=== PATIENT | female | born 1960 | race Caucasian/White ===

== ENCOUNTER → 2017-05-12 | Outpatient (CLI) | payer MEDICARE ==
[~2017-05-12] MED LIST: CARISOPRODOL350 MG PO; IBUPROFEN 400400 M2 PO; LOMOTIL TABLET1 EACH PO; NEURONTIN600 MG PO; PAXIL20 MG PO; TYLENOL325 MG PO; ZANAFLEX4 MG PO
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
== END | disposition home or self-care (01) ==
LOC: M.PC 03-11 04:50
DX: M54.12 Radiculopathy, cervical region (principal); G89.29 Other chronic pain; F43.10 Post-traumatic stress disorder, unspecified; R51 Headache; Z88.0 Allergy status to penicillin; Z98.890 Other specified postprocedural states

== ENCOUNTER → 2017-06-02 | Outpatient (CLI) | payer MEDICARE ==
--- NOTE | 2017-06-07 07:21 | PAINCON ---
[address] [address] PAIN MANAGEMENT CONSULTATION Name: FRANCISCO TAFOYA Room: [facility] Gallardo#: [id number] Admission: 06/02/17 Attend Phys: Chi Katz Discharge: Date of : 62 Report #: [id number] THIS REPORT FOR: //name// CC: Thierno Lozoya The patient is a 56-year-old female, prior seen in consultation on 05/12/2017, diagnosed with symptomatic cervical radiculopathy, given epidural injection at that time. Returns to pain clinic today noting the injection afforded about 70% overall relief with ongoing improvement; however, she still has cervical radicular symptoms. She also notes she has had some chronic myofascial pain with muscle spasm, requiring complex medication management. She has been on Soma 350 mg 4 times a day for going on 10 years. Today, we did have a prolonged discussion about concern for habituation with Soma type products. Metabolite of Soma (meprobamate) is a [employer] anxiolytic. It can be quite habituating. I suggested the patient try and rotate from this agent to another muscle relaxant. To this end, I have taken the liberty of providing patient with a prescription for tizanidine 4 mg, written ostensibly for q.i.d. use. With this, I suggested that patient start by replacing 1 Soma tablet with tizanidine (continue Soma t.i.d. and use tizanidine 4 mg for her a.m. dose for a week; use tizanidine for the a.m. dose, Soma for the afternoon dose, tizanidine for the evening dose and Soma for the bedtime dose for a week; then use tizanidine for the morning, afternoon and evening dose with Soma reserved for the bedtime dose for a week and then try simply discontinuing Soma altogether with tizanidine 4 times a day, gradually weaning down to t.i.d.) I did provide the patient with a prescription for tizanidine as noted above. With ongoing cervical radicular symptoms with improvement from the first injection, but still with positive Lhermitte's sign, we elected to repeat the cervical epidural injection today. Follow up in 4 weeks for reevaluation. ASSESSMENT: Symptomatic cervical radiculopathy. PROCEDURE: Cervical epidural injection under fluoroscopy. PROCEDURE NOTE: After written and informed consent was obtained including risk of dural puncture, spinal cord trauma, paralysis and increased pain, the patient was taken to the fluoroscopy suite and placed in the prone position, with appropriate abdominal bolstering, neck was flexed, palms under the thighs. Skin was prepped with ChloraPrep. Sterile draping was applied. Skin wheal with 1% Xylocaine was raised. A 22-gauge 3-1/2 inch epidural Tuohy needle was placed via a midline approach at the C7-T1 interspace, advanced under biplanar fluoroscopy using continuous loss of resistance. With appropriate loss of resistance at the expected depth on lateral view, the glass loss of resistance syringe was disconnected. A low volume [id number] PAIN MANAGEMENT CONSULTATION Name: FRANCISCO TAFOYA Room: [facility]#: [id number] Admission: 06/02/17 Attend Phys: Chi Katz Discharge: Date of : 62 Report #: [id number] needle and a 5 mL syringe. Negative aspiration for cerebrospinal fluid or blood was noted. A 1 mL of Omnipaque was injected which showed spread within the epidural space on biplanar fluoroscopy. This was followed with 80 mg of triamcinolone plus 1 mL of 1.5% preservative Xylocaine. Needle was withdrawn to the interspinous ligament, 0.5 mL of Xylocaine was used to flush the needle. The needle was then completely withdrawn. The area was cleansed. Band-Aid was applied. The patient was allowed to move off the procedure table and ambulated to the recovery room, monitored for an appropriate period of time, discharged in good and stable condition. <ELECTRONICALLY SIGNED> By: Moiz Lozoya DO 06/07/17 0721 [id number] Lzooya DO /nt
== END | disposition home or self-care (01) ==
LOC: M.PC 01:40
DX: M54.12 Radiculopathy, cervical region (principal); M79.1 Myalgia